=== PATIENT | female | born 1960 | race African-American/Black ===

== ENCOUNTER 2017-02-06 17:46 | Day surgery (SDC) | payer BC, MEDICARE ==
[~2017-02-06] VITALS: Ht 149.9 cm; Wt 68.0 kg
[~2017-02-06 17:46] MED LIST: BALANCED SALT IRRIG SOLN 15ML ONE; BUPIVACAINE HCL/PF 0.75% (7.5MG/ML) 10ML ONE; CIPROFLOXACIN 0.3% OPHTH SOLN 2.5ML ONE; LIDOCAINE HCL 2%/EPINEPHRINE 1:100,000 20 ML VIAL INFIL ONE; NEO/POLYMYX B SULF/DEXAMETH OPHTH OINT 3.5GM ONE; PREDNISOLONE ACETATE 1% OPHTH DROPS 1ML ONE; TETRACAINE 0.5% OPHTH DROPS 4ML ONE
[2017-02-06] MEDS ORDERED: ACETAZOLAMIDE SODIUM 500MG/VIAL IV ONE (19:00)
[2017-02-06 19:15] VITALS: BP 146/68
[2017-02-06 19:41] LABS: BASOPHILS % 1.2 % (0.0-2.0); EOSINOPHILS % 3.2 % (0.0-5.0); HEMATOCRIT. 39.7 % (36.0-48.0); HEMOGLOBIN. 12.9 g/dL (12.0-16.0); LYMPHOCYTES % 44.6 % (20.0-50.0); MEAN CORPUSCULAR HEMOGLOBIN 31.2 pg (28.0-32.0); MEAN CORPUSCULAR VOLUME 96.2 fL (81.0-99.0); MEAN PLATELET VOLUME 7.9 fl (7.4-10.4); MONOCYTES % 6.7 % (2.0-8.0); NEUTROPHILS % 44.3 % (40.0-76.0); PLATELET 315 x1000/uL (130-400); RED BLOOD CELL COUNT 4.12 mill/uL (4.2-5.4); RED CELL DISTRIBUTION WIDTH 14.3 % (11.6-14.6)
[2017-02-06 19:47] LABS: CHLORIDE 111 mEq/L (98-107)
[2017-02-06 19:56] LABS: CARBON DIOXIDE 23 mEq/L (21-32)
[2017-02-06] MEDS ORDERED: LIDOCAINE HCL 1% 20ML VIAL (Pyxis) INJ ONE (21:03)
[2017-02-06] MEDS ORDERED: PROPOFOL 200MG/20ML VIAL IV ONE (21:03)
[2017-02-06] MEDS ORDERED: FENTANYL CITRATE/PF 50MCG/ML 2ML VIAL ONE (21:04)
[2017-02-06] MEDS ORDERED: DIPHENHYDRAMINE 50MG/ML VIAL ONE (21:04)
[2017-02-06] MEDS ORDERED: MIDAZOLAM HCL 2 MG/2 ML VIAL ONE (21:04)
[2017-02-06] MEDS ORDERED: CEFAZOLIN SODIUM 1000MG/VIAL ONE (21:06)
[2017-02-06] MEDS ORDERED: SODIUM CHLORIDE 0.9% 10ML VIAL ONE (21:06)
[2017-02-06] MEDS ORDERED: DEXAMETHASONE 4MG/ML 1ML VIAL ONE (21:22)
[2017-02-06] MEDS ORDERED: MORPHINE SULFATE 2 MG/ML CPJ (NOT FOR IM USE) IV PRN (22:00)
[2017-02-06] MEDS ORDERED: ACETAMINOPHEN 325MG TABLET PO PRN (22:15)
== END 2017-02-06 21:55 | disposition home or self-care (01) ==
LOC: ER 20:00 → OR 20:50 → EDBEDREQ 23:07 → CANBEDREQ 02-07 01:04 → ER 02-07 10:49
PROVIDERS: ATTEND Ophthalmology
DX: H40.2210 Chronic angle-closure glaucoma, right eye, stage unspecified (principal); H57.11 Ocular pain, right eye; H54.42 Blindness, left eye, normal vision right eye; M19.91 Primary osteoarthritis, unspecified site; I10 Essential (primary) hypertension; Z94.7 Corneal transplant status; Z96.643 Presence of artificial hip joint, bilateral; Z96.659 Presence of unspecified artificial knee joint
CPT/HCPCS: 66180; 80053; 85025; 93005; A4216; C1783; J0690; J1100; J1120; J1200; J2250; J3010; J3490; 36415; 96374; 99285; J2704